=== PATIENT | female | born 1960 | race Two or more races ===

== ENCOUNTER → 2018-03-01 | Day surgery (SDC) | payer BC ==
[~2018-03-01] MED LIST: CALCIUM CARBON500 MG PO; LIDOCAINE HCL 2% LOCAL INJ 5 ML SDV VIAL INJ ONE; MIDAZOLAM HCL 2 MG/2 ML VIAL ONE; PRILOSEC OTC20 MG PO; PROPOFOL IV EMULSION 10 MG/ML 50 ML VIAL ONE; VIT D PO; Z.0.PRAVACHOL20 MG PO; Z.0.PRAVASTATIN SOD2 PO; Z.0.SYNTHROID125 MCG PO
[2018-03-01 09:25] VITALS: BP 107/78
--- NOTE | 2018-03-01 09:47 | Operative Report ---
DATE OF PROCEDURE: March 01, 2018 REFERRING PHYSICIAN: Dr. Kuldip Glass PROCEDURES PERFORMED 1. Esophagogastroduodenoscopy with biopsies. 2. Colonoscopy with polypectomy. INDICATIONS FOR EGD: Dyspepsia. INDICATIONS FOR COLONOSCOPY: Colorectal cancer screening and personal history of colon polyps. MEDICATION: Patient was done under MAC. Please see anesthesiologist's note. PROCEDURE: With the patient in the left lateral decubitus position, the flexible fiberoptic Olympus gastroscope was introduced into the esophagus under direct visualization without any difficulty. There was some patchy erythema noted in the distal esophagus. The scope was then advanced with ease into the stomach traversing a small sliding hiatal hernia. Mucosa overlying the antrum revealed some patchy erythema and low-grade edema, and biopsies were obtained and sent to stain for H. pylori. Several hyperplastic appearing polyps were noted in the body of the stomach. Some were partially excised with the cold biopsy forceps. Pylorus was of normal contour and shape. It was intubated with ease. The scope was advanced all the way to the 2nd portion of the duodenum. The scope was then withdrawn slowly. Mucosa overlying the proximal 2nd portion and the duodenal bulb appeared to be within normal limits. The scope was then withdrawn back into the stomach and retroflexed. Mucosa overlying the fundus and the cardia grossly appeared to be within normal limits. The scope was then straightened out. It was subsequently withdrawn. Patient tolerated the procedure well. IMPRESSION 1. Distal esophagitis, mild. 2. Small sliding hiatal hernia. 3. Gastritis, biopsied. Biopsies sent to stain for Helicobacter pylori. 4. Gastric polyps, body, some partially excised with the cold biopsy forceps. PLAN: Follow up histology. Initiate Protonix 40 mg 1 p.o. q.a.m. a.c. Patient was then turned. After adequate lubrication of the anal canal, a flexible fiberoptic Olympus colonoscope was inserted into the rectum with ease and advanced all the way to the cecum. It was then withdrawn slowly. Mucosa overlying the cecum appeared to be within normal limits. A single diverticulum was noted in the ascending colon. The transverse and descending grossly appeared to be within normal limits. One polyp was snared from the sigmoid colon. The rectum appeared to be within normal limits. The scope was then retroflexed into the distal rectum and small internal hemorrhoids were noted, none of which was actively bleeding. The scope was then straightened out. The scope was subsequently withdrawn. Patient tolerated the procedure well. IMPRESSION 1. Diverticulosis, minimal. 2. Sigmoid colon polyp, snared. 3. Internal hemorrhoids, none actively bleeding. PLAN: Follow up histology. Initiate high-fiber and low-fat diet. Initiate high-fiber supplement. Patient will need a followup colonoscopy in 3-5 years. Job#: [id number] RI cc:KULDIP GLASS M.D.
== END | disposition home or self-care (01) ==
LOC: OR 06:29
PROVIDERS: ATTEND Internal Medicine Gastroenterology
DX: Z12.11 Encounter for screening for malignant neoplasm of colon (principal); K63.5 Polyp of colon; K31.7 Polyp of stomach and duodenum; K29.50 Unspecified chronic gastritis without bleeding; K21.9 Gastro-esophageal reflux disease without esophagitis; K44.9 Diaphragmatic hernia without obstruction or gangrene; K20.9 Esophagitis, unspecified; K57.30 Diverticulosis of large intestine without perforation or abscess without bleeding; K64.8 Other hemorrhoids; E78.00 Pure hypercholesterolemia, unspecified; Z68.28 Body mass index [BMI] 28.0-28.9, adult; Z85.850 Personal history of malignant neoplasm of thyroid
CPT/HCPCS: 43239; 45385; J2001; J2250; 45378

== ENCOUNTER 2020-07-14 10:15 | Inpatient (IN) | payer BC ==
[~2020-07-14] VITALS: Ht 172.7 cm; Wt 80.7 kg
[~2020-07-14 10:15] MED LIST changes: -LIDOCAINE HCL 2% LOCAL INJ 5 ML SDV VIAL INJ ONE; -MIDAZOLAM HCL 2 MG/2 ML VIAL ONE; -PROPOFOL IV EMULSION 10 MG/ML 50 ML VIAL ONE
[2020-07-14 11:40] VITALS: BP 136/77
[2020-07-14] MEDS ORDERED: ENOXAPARIN INJ 80 MG/0.8 ML SYR SC SCH (11:45)
[2020-07-14] MEDS: DEXAMETHASONE SOD PHOS 10 MG/1 ML VIAL IV SCH (12:21)
[2020-07-14] MEDS: DEXTROSE 5%/LACTATED RINGERS 1,000 ML IV SCH ×2 (12:21→13:02)
[2020-07-14] MEDS: AZITHROMYCIN 500MG/NS 250 ML 250 ML IV SCH (13:02)
[2020-07-14] MEDS: ENOXAPARIN SOD INJ 40 MG/0.4 ML SYR SC SCH (13:02)
[2020-07-14] MEDS ORDERED: ACETAMINOPHEN 325 MG TAB PO PRN (14:00)
[2020-07-14] MEDS ORDERED: REMDESIVIR 200MG/NS 100ML 200 MG IV ONE (14:30)
[2020-07-14] MEDS ORDERED: ASCORBIC ACID500 M4 PO (14:56)
[2020-07-14] MEDS: CEFTRIAXONE SOD 2 GM/NS 100 ML 100 ML IV SCH (16:34)
[2020-07-14] MEDS: ASCORBIC ACID 500 MG TAB PO SCH (16:35)
[2020-07-14 16:47] VITALS: BP 121/61
[2020-07-14 20:00] VITALS: BP 107/68
[2020-07-14] MEDS: ZOLPIDEM TARTRATE 5 MG TAB PO PRN (22:11)
[2020-07-14 22:55] VITALS: BP 107/68
[2020-07-15] VITALS (8 sets, daily range): BP systolic 105–123; BP diastolic 67–75
[2020-07-15 05:31] LABS: BASOPHILS % 0.4 % (0.0-1.0); EOSINOPHILS # (AUTO) 0.1 (0.0-0.4); EOSINOPHILS % 2.2 % (0.0-6.0); HEMATOCRIT 35.7 % (34.2-44.1); HEMOGLOBIN 11.7 g/dL (12.0-16.0); LYMPHOCYTES # (AUTO) 1.2 (1.0-3.2); LYMPHOCYTES % 53.9 % (18.0-39.1); MEAN CORPUSCULAR HEMOGLOBIN 29.4 pg (28-32); MEAN CORPUSCULAR HGB CONC 32.8 g/dL (31-35); MEAN CORPUSCULAR VOLUME 89.7 fL (81-99); MONOCYTES # (AUTO) 0.4 (0.2-0.8); MONOCYTES % 16.7 % (4.4-11.3); NEUTROPHILS # (AUTO) 0.6 (2.1-6.9); NEUTROPHILS % 26.8 % (38.7-80.0); PLATELET COUNT 221 x10e3/uL (140-360); RED BLOOD COUNT 3.98 x10e6/uL (3.6-5.1); RED CELL DISTRIBUTION WIDTH 13.8 % (11.7-14.4)
[2020-07-15 06:07] LABS: ALANINE AMINOTRANSFERASE 22 IU/L (0-55); ALBUMIN 3.7 g/dL (3.5-5.0); ALBUMIN/GLOBULIN RATIO 1.2 (0.8-2.0); ALKALINE PHOSPHATASE 50 IU/L (40-150); ANION GAP 11.9 mmol/L (8-16); BLOOD UREA NITROGEN 10 mg/dL (7-26); BUN/CREATININE RATIO 13 (6-25); CALCIUM 8.8 mg/dL (8.4-10.2); CARBON DIOXIDE 25 mmol/L (22-29); CHLORIDE 105 mmol/L (98-107); CREATININE, SERUM 0.75 mg/dL (0.57-1.11); EST GLOMERULAR FILTRATION RATE > 60 ML/MIN (60-); GLUCOSE 83 mg/dL (74-118); POTASSIUM 3.9 mmol/L (3.5-5.1); SODIUM 138 mmol/L (136-145)
[2020-07-15] MEDS ORDERED: ZINC SULFATE 220 MG CAP PO SCH (09:00)
[2020-07-15] MEDS: ASCORBIC ACID 500 MG TAB PO SCH ×2 (09:22→16:12)
[2020-07-15] MEDS: ZINC SULFATE 50 MG CAP PO SCH (09:22)
[2020-07-15] MEDS: ENOXAPARIN SOD INJ 40 MG/0.4 ML SYR SC SCH (09:22)
[2020-07-15] MEDS: DEXAMETHASONE SOD PHOS 10 MG/1 ML VIAL IV SCH (09:22)
[2020-07-15] MEDS: CEFTRIAXONE SOD 2 GM/NS 100 ML 100 ML IV SCH (09:22)
[2020-07-15 09:56] LABS: EOSINOPHILS % (MANUAL) 2 % (0-7); LYMPHOCYTES % (MANUAL) 54 % (19-48); MONOCYTES % (MANUAL) 17 % (3.4-9.0); NEUTROPHILS % (MANUAL) 27 % (40-74)
[2020-07-15] MEDS ORDERED: POLYETHYLENE GLYCOL 3350 17 GM PACK PO PRN (12:30)
[2020-07-15] MEDS ORDERED: DOCUSATE SODIUM 100 MG CAP PO PRN (12:30)
[2020-07-15] MEDS: AZITHROMYCIN 500MG/NS 250 ML 250 ML IV SCH (12:32)
[2020-07-15] MEDS ORDERED: REMDESIVIR 100MG/NS 100ML 100 MG IV SCH (14:30)
[2020-07-15] MEDS: ZOLPIDEM TARTRATE 5 MG TAB PO PRN (21:45)
[2020-07-16] VITALS: BP 97/50
[2020-07-16 04:00] VITALS: BP 116/72
[2020-07-16 08:01] VITALS: BP 116/72
[2020-07-16] MEDS: ASCORBIC ACID 500 MG TAB PO SCH (08:40)
[2020-07-16] MEDS: ZINC SULFATE 50 MG CAP PO SCH (08:40)
[2020-07-16] MEDS: DEXAMETHASONE SOD PHOS 10 MG/1 ML VIAL IV SCH (08:40)
[2020-07-16] MEDS: ENOXAPARIN SOD INJ 40 MG/0.4 ML SYR SC SCH (08:40)
[2020-07-16] MEDS ORDERED: CEFTRIAXONE SOD 2 GM/NS 100 ML 100 ML IV SCH (09:00)
[2020-07-16 09:12] VITALS: BP 131/74
[2020-07-16 10:00] LABS: BASOPHILS % 0.2 % (0.0-1.0); EOSINOPHILS % 0.4 % (0.0-6.0); HEMATOCRIT 35.9 % (34.2-44.1); HEMOGLOBIN 11.8 g/dL (12.0-16.0); LYMPHOCYTES # (AUTO) 1.3 (1.0-3.2); LYMPHOCYTES % 22.8 % (18.0-39.1); MEAN CORPUSCULAR HEMOGLOBIN 29.1 pg (28-32); MEAN CORPUSCULAR HGB CONC 32.9 g/dL (31-35); MEAN CORPUSCULAR VOLUME 88.6 fL (81-99); MONOCYTES # (AUTO) 0.5 (0.2-0.8); MONOCYTES % 8.2 % (4.4-11.3); NEUTROPHILS # (AUTO) 3.8 (2.1-6.9); PLATELET COUNT 236 x10e3/uL (140-360); RED BLOOD COUNT 4.05 x10e6/uL (3.6-5.1); RED CELL DISTRIBUTION WIDTH 13.5 % (11.7-14.4)
[2020-07-16] MEDS ORDERED: AZITHROMYCIN 500MG/NS 250 ML 250 ML IV SCH (10:00)
[2020-07-16 10:35] LABS: ALANINE AMINOTRANSFERASE 26 IU/L (0-55); ALBUMIN 3.8 g/dL (3.5-5.0); ALBUMIN/GLOBULIN RATIO 1.2 (0.8-2.0); ALKALINE PHOSPHATASE 50 IU/L (40-150); ANION GAP 12.6 mmol/L (8-16); BLOOD UREA NITROGEN 14 mg/dL (7-26); BUN/CREATININE RATIO 18 (6-25); CALCIUM 9.1 mg/dL (8.4-10.2); CARBON DIOXIDE 27 mmol/L (22-29); CHLORIDE 103 mmol/L (98-107); CREATININE, SERUM 0.77 mg/dL (0.57-1.11); EST GLOMERULAR FILTRATION RATE > 60 ML/MIN (60-); GLUCOSE 104 mg/dL (74-118); POTASSIUM 3.6 mmol/L (3.5-5.1); SODIUM 139 mmol/L (136-145)
[2020-07-16] MEDS ORDERED: REMDESIVIR 100MG/NS 100ML 100 MG IV SCH (11:00)
[2020-07-16 12:25] VITALS: BP 116/66
== END 2020-07-16 14:20 | disposition home or self-care (01) | DRG 177 ==
LOC: IMCU 11:02
PROVIDERS: ADMIT Internal Medicine Infectious Disease; ATTEND Internal Medicine Infectious Disease
PROC: XW033E5 Introduction of Remdesivir Anti-infective into Peripheral Vein, Percutaneous Approach, New Technology Group 5 (ICD-10-PCS; principal; 2020-07-14)
PROC: 8E0ZXY6 Isolation (ICD-10-PCS; 2020-07-14)
DX: U07.1 COVID-19 (principal); J96.90 Respiratory failure, unspecified, unspecified whether with hypoxia or hypercapnia; J12.82 Pneumonia due to coronavirus disease 2019; C85.90 Non-Hodgkin lymphoma, unspecified, unspecified site; E86.0 Dehydration; K21.9 Gastro-esophageal reflux disease without esophagitis
CPT/HCPCS: 36415; 71045; 80053; 85025; J0456; J0696; J1100; J1650

== ENCOUNTER 2021-12-05 14:43 | Emergency (ER) | payer BC ==
[~2021-12-05] VITALS: Ht 172.7 cm; Wt 80.7 kg
[~2021-12-05 14:43] MED LIST changes: +ASCORBIC ACID500 M4 PO
[2021-12-05] MEDS ORDERED: BEBTELOVIMAB 175 MG INJ IV ONE (15:00)
== END 2021-12-05 16:27 | disposition home or self-care (01) ==
LOC: ER 14:51
DX: U07.1 COVID-19 (principal); R05.9 Cough, unspecified; Z85.72 Personal history of non-Hodgkin lymphomas; Z85.850 Personal history of malignant neoplasm of thyroid
CPT/HCPCS: 99284

== ENCOUNTER → 2022-09-15 | Outpatient (CLI) | payer BC | LOC: RAD 10:58 | PROVIDERS: ATTEND Internal Medicine | DX: R05.9 Cough, unspecified (principal); J40 Bronchitis, not specified as acute or chronic | CPT/HCPCS: 71046 ==